=== PATIENT | female | born 1980 | race Caucasian/White ===

== ENCOUNTER 2016-08-14 15:58 | Day surgery (SDC) | payer OTHER | END 2016-08-14 19:00 | disposition short-term general hospital (02) | LOC: SURGOP 15:58 | PROC: 10D17ZZ Extraction of Products of Conception, Retained, Via Natural or Artificial Opening (ICD-10-PCS; principal; 2016-08-14) | DX: O02.0 Blighted ovum and nonhydatidiform mole (principal); I10 Essential (primary) hypertension; E03.9 Hypothyroidism, unspecified; C81.90 Hodgkin lymphoma, unspecified, unspecified site; J70.0 Acute pulmonary manifestations due to radiation; Z79.899 Other long term (current) drug therapy; Z79.891 Long term (current) use of opiate analgesic; Z87.19 Personal history of other diseases of the digestive system; E66.9 Obesity, unspecified; Z68.42 Body mass index [BMI] 45.0-49.9, adult | CPT/HCPCS: J0330; J0690; J2250; J2405; J2765; J3010 ==